=== PATIENT | female | born 1955 | race Caucasian/White ===

== ENCOUNTER → 2018-05-10 | Outpatient (CLI) | payer OTHER ==
[~2018-05-10] MED LIST: ADDERALL 20 MG20 M1 PO; CLONAZEPAM; DARVOCET-N 1001 EACH PO; HYDROCODONE-AP1 EAC6 PO; LEVOTHYROXINE0.05 MG PO; MENOSTAR1 EACH TD; PANTOPRAZOLE SO40 M1 PO; TRAZODONE HCL50 MG PO; ZOLOFT100 MG PO
== END ==
LOC: M.ULTRA 11:00
DX: Z12.31 Encounter for screening mammogram for malignant neoplasm of breast (principal); R22.9 Localized swelling, mass and lump, unspecified; M79.661 Pain in right lower leg

== ENCOUNTER → 2018-07-02 | Outpatient (CLI) | payer OTHER | LOC: M.ULTRA 16:00 | DX: M71.21 Synovial cyst of popliteal space [Baker], right knee (principal); M79.89 Other specified soft tissue disorders; R22.41 Localized swelling, mass and lump, right lower limb; R20.0 Anesthesia of skin ==

== ENCOUNTER → 2018-08-22 | Outpatient (CLI) | payer OTHER ==
[~2018-08-22] MED LIST changes: +CALCIUM + VIT1 EACH PO; +CRESTOR5 MG PO; +ESTRADIOL 1 MG T1 M1 PO; +FLONASE 0.05%50 MCG NASAL; -LEVOTHYROXINE0.05 MG PO; +LYRICA 75 MG CA75 MG PO; -MENOSTAR1 EACH TD; +NORCO 10-325 T1 EACH PO; +OCUVITE ADULT1 EAC1 PO; +OMEPRAZOLE40 MG PO; -PANTOPRAZOLE SO40 M1 PO; +SYNTHROID125 MC1 PO; +VITAMIN D2000 UNIT PO
--- NOTE | ~2018-08-22 | PAINCON ---
[address] [address] PAIN MANAGEMENT CONSULTATION Name: JORGENEWTONESTHER CURRIE [facility] [id number] Admission: 08/22/18 Attend Phys: Florentin Landeros MD Discharge: Date of : 53 Report #: [id number] THIS REPORT FOR: //name// CC: Florentin Cruz DATE OF SERVICE: 08/22/2018 CHIEF COMPLAINT: Lumbar back pain. HISTORY OF PRESENT ILLNESS: The patient is a 63-year-old female who has been referred to the Pain Clinic for evaluation. She has been experiencing pain, which she describes as exhausting and tense numbness from her right hip and into her low back area. Pain is made worse when she is walking, lifting and with activities of daily living. She feels the pain is improved when she is sitting or reclining. Describes it as continuous, constant, gnawing, tender, burning, cramping and aching. Rates it as a 3/10 today. Oftentimes, it can rise to a level of 10. Denies any bowel or bladder dysfunction as a result of it. Notes that the pain truly radiates down from the right hip down the lateral portion of her leg down into her foot. MRI of the lumbar spine indicated. Note was made of neural foraminal stenosis at the L3-L4 area. She has had some upper back pain and low back pain as well as some involvement of her right leg. She has had some problems with discomfort over the last 10 years. 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 She is not ridden them for 1-1/2 years. She frequently falls. States that it is secondary to being clumsy. Also, notes that her right leg gives out. She has had physical therapy and has visited chiropractor in the past as well. She has tried hot and cold packs. She also has used TENS. She has been using hydrocodone to help curve the pain. Feels that Lyrica somewhat beneficial, but causes some feeling of depression. She has used ibuprofen as well. She feels that her pain is 50-75% improved with the current regimen. Activities, such as walking, standing, climbing stairs, sitting, lifting and bending are problematic. She has noticed some improvement with the use of medications, heat, rest and massage in conjunction with TENS. ALLERGIES: MORPHINE. CURRENT MEDICATIONS: Osteo Bi-Flex, vitamin D3, B complex vitamins, hydrocodone, Flonase, sertraline, clonazepam, trazodone, levothyroxine, estradiol, Adderall XR, omeprazole, and Lyrica p.r.n. PAST MEDICAL HISTORY: Hypothyroidism, asthma, gastroesophageal reflux disease, elevated cholesterol, fibromyalgia, bipolar, attention deficit disorder, dyslexia, sleep apnea, restless legs syndrome, migraine, and connective tissue disease. PAST SURGICAL HISTORY: Tonsillectomy, appendectomy, [place] [address] PAIN MANAGEMENT CONSULTATION Name: NEWTON PATEL ROSEY Room: [facility] Lange#: [id number] Admission: 08/22/18 Attend Phys: Florentin Landeros MD Discharge: Date of : 53 Report #: [id number] ovary childbirth x 2, hysterectomy, left trigger thumb release, esophageal adhesions, breast implantation/___ removal, cholecystectomy, right foot bunion surgery, hematoma evacuation of right knee after a horse bite, kidney stone removal, colonoscopy, right knee arthroscopy, left foot surgery, right lateral epicondyle debridement, 01/03/2008. Cholecystectomy 2003, hysterectomy in 1981 with right ovary removed 1971, left ovary removed, appendectomy was 1971, right knee surgery x 2. SOCIAL HISTORY: She is retired. She has not worked since 2012. REVIEW OF SYSTEMS: Generally good health, fatigue, weakness, headaches, wears glasses, hearing loss, sore throat, voice changes, swollen glands, neck, shortness of breath, abdominal pain, joint pain, joint stiffness/swelling, weakness of muscles/joints, muscle pain/cramps, back pain, difficulty walking, memory loss/confusion, nervousness, depression, and easy bruising. LABORATORY DATA: MRI of the lumbar spine dated 07/19/2018: 1. L2-L3 posterior disk height loss. Mild disk bulge. Facet hypertrophy. Mild left neural foraminal stenosis. Right neural foraminal minimally narrowed. Mild spinal canal stenosis, dural sac diameter 11 mm relative to the normal diameter of 13 mm at the L2 pedicle level. 2. L3-L4 uncovering of the disk and moderate disk bulge. Posterior disk height loss. Bulky facet osteophytes. Moderate right greater than left neural foraminal stenosis and mild narrowing lateral recess greater than right. Moderate spinal canal stenosis, dural sac diameter is 10 mm relative to the normal diameter 14 mm at the L3 pedicle level. 3. L4-L5 posterior disk height loss and mild disk bulge, facet osteophytes. Mild/moderate neural foraminal stenosis. No spinal canal stenosis. Dural sac diameter 15 mm. 4. L5-S1 marked disk desiccation, moderate disk height loss, uncovering of the disk and moderate disk bulge. Lateral endplate osteophytes and facet spurs. Mild neural foraminal stenosis. Mild spinal canal stenosis, dural sac diameter 12 mm relative to the normal diameter of 14 mm at the L5 pedicle level. PAIN CLINIC ASSESSMENT AND PQRS: 1. The patient has some arthritic changes in her right knee. [id number]. The patient is not being treated for rheumatoid arthritis. 2. Height 4 feet 11 inches, weight 229 pounds, BMI is 48. 3. Vital signs: Blood pressure 144/88, heart rate 75, respiratory rate 16, room air saturation is 95%, and temperature is 98.6. 4. Pain intensity, 3/10. 5. Fall history: The patient states she has fallen a number of times because of weakness involving her right leg, "it goes out." 6. Blood thinner. The patient is not on a blood thinning medication. 7. Hypertension. The patient is not being treated for hypertension. 8. Opioid therapy greater than 6 weeks. The [place] [address] PAIN MANAGEMENT CONSULTATION Name: JORGENEWTON ROSEY Room: [facility]#: [id number] Admission: 08/22/18 Attend Phys: Florentin Landeros MD Discharge: Date of : 53 Report #: [id number] help control her pain. 9. Risk assessment tool, moderate risk for opioid use. 10. Functional assessment tool . 11. Tobacco: The patient denies use of tobacco. 12. Alcohol: The patient denies use of alcoholic beverages. PHYSICAL EXAMINATION: GENERAL: The patient is a well-developed white female, appears her stated age. She is alert and oriented x 3. Affect is appropriate. Speech is fluent. HEENT: Normocephalic, atraumatic. Extraocular eye muscles intact. Sclerae nonicteric. Mucous membranes are moist. NECK: Without adenopathy or JVD. Upper extremity muscle strength is judged to be 5/5 on the left and 5-/5 on the right. The patient has a brace on her right hand. HEART: Regular rate. ABDOMEN: Protuberant. Bowel sounds present. MUSCULOSKELETAL: The patient has pain and discomfort in the right leg. She states that there is some pain and discomfort in the area of her posterior right leg. She was bitten by a horse in this area. Also, complains of some pain, which is radiating down into her right leg. She has some discomfort in the right as well as the left posterior superior iliac spine area. She complains of pain that radiates from her low back area in the posterior superior iliac spine down the lateral portion of her right leg and down into her foot. IMPRESSION: 1. Lumbar radiculopathy. 2. Hypothyroidism. 3. Asthma. 4. Gastroesophageal reflux disease. 5. Elevated cholesterol. 6. Fibromyalgia. 7. Bipolar. 8. Attention deficit disorder. 9. Dyslexia. 10. Sleep apnea. 11. Restless legs syndrome. 12. Migraine. 13. Connective tissue disease. RECOMMENDATIONS: We discussed treatment options with the patient. Risks and benefits of an epidural steroid injection were discussed. Possible complications of the procedure, which could include but are not limited to infection, worsening pain, no improvement in pain, spinal headache as well as nerve trauma were discussed. The patient will return to the Pain Clinic, at which time she will undergo an epidural steroid injection to help control pain and discomfort, which she is experiencing, which [place] [address] PAIN MANAGEMENT CONSULTATION Name: NEWTON PATEL Room: [facility]#: [id number] Admission: 08/22/18 Attend Phys: Florentin Landeros MD Discharge: Date of : 53 Report #: [id number] lateral area down into the L5 dermatomal distribution. We would like to thank you for letting us participate in her care. We hope she continues to improve. By: [id number]. Eduardo Landeros MD /nt
== END ==
LOC: M.PC 05:04
DX: M54.16 Radiculopathy, lumbar region (principal); E03.9 Hypothyroidism, unspecified; J45.909 Unspecified asthma, uncomplicated; K21.9 Gastro-esophageal reflux disease without esophagitis; E78.00 Pure hypercholesterolemia, unspecified; G47.30 Sleep apnea, unspecified; G43.909 Migraine, unspecified, not intractable, without status migrainosus; M35.1 Other overlap syndromes; Z90.49 Acquired absence of other specified parts of digestive tract; Z88.5 Allergy status to narcotic agent; Z79.899 Other long term (current) drug therapy

== ENCOUNTER → 2018-09-05 | Outpatient (CLI) | payer OTHER ==
--- NOTE | ~2018-09-05 | PAINCON ---
[address] [address] PAIN MANAGEMENT CONSULTATION Name: NEWTON PATEL [id number] Admission: 09/05/18 Attend Phys: Florentin Landeros MD Discharge: Date of : 53 Report #: [id number] THIS REPORT FOR: //name// CC: Florentin Cruz DATE OF SERVICE: 09/05/2018 CHIEF COMPLAINT: Pain down the right leg with numbness, tingling, and weakness. HISTORY: The patient is a 63-year-old female, who has been seen in the pain clinic because of pain and discomfort, which she has been experiencing. It radiates down into her right leg with numbness, tingling, and weakness. She notes that activities of daily living have become more problematic. Walking, standing, climbing stairs, sitting, bending, and lifting are more problematic. She has been using the TENS unit to help with the pain and finds that the medications, use of heat as well as cold have been beneficial as well. She has returned today desiring treatment with an epidural steroid injection. CURRENT MEDICATIONS: Osteo Bi-Flex, vitamin D3, B complex vitamins, hydrocodone, Flonase, sertraline, clonazepam, trazodone, levothyroxine, estradiol, Adderall XR, omeprazole, and Lyrica. ALLERGIES: MORPHINE. PAIN CLINIC ASSESSMENT AND PQRS: 1. The patient has some arthritic changes in her right knee. She has tmwy-nh-ifcm irritation. She is not being treated for rheumatoid arthritis. 2. Pain intensity is 4/10. 3. Fall history. The patient has fallen a number of times because of weakness involving her right leg. She states that it gives out. 4. Blood thinner. The patient is not on a blood thinning medication. 5. Hypertension. The patient is not being treated for hypertension. 6. Opioids greater than 6 weeks. The patient has used oxycodone to help control her pain. 7. Risk assessment tool, moderate for opioid risk. 8. Functional assessment tool, . 9. Tobacco. The patient denies use of tobacco. 10. Alcohol. The patient denies use of alcoholic beverages. PHYSICAL EXAMINATION: GENERAL: The patient is a well-developed, well-nourished, somewhat obese white female. She appears her stated age. She is alert and oriented x 3. Her affect is appropriate. Speech is fluent. Height is 4 feet 11 inches, weight is 236 pounds, and BMI is 47.5. VITAL SIGNS: Blood pressure is 151/65, respiratory rate is 16, [place] [address] PAIN MANAGEMENT CONSULTATION Name: JORGENEWTON ROSEY Room: [facility]..#: [id number] Admission: 09/05/18 Attend Phys: Florentin Landeros MD Discharge: Date of : 53 Report #: [id number] saturation is 94%, heart rate is 66, and temperature is 98.1. HEENT: Normocephalic, atraumatic. Extraocular eye muscles intact. NECK: Without adenopathy or JVD. Upper extremity muscle strength is judged to be 5/5 for the major muscle groups in the upper extremity on the right. HEART: Regular rate. ABDOMEN: Protuberant. Bowel sounds present. MUSCULOSKELETAL: The patient has complained of pain and discomfort with pain that is radiating down into her right leg with numbness and weakness. She has pain and discomfort in the L4-L5 dermatomal distribution. Straight leg raise is positive. IMPRESSION: 1. Lumbar radiculopathy at L4-L5 and pain in the right lumbar L4-L5 distribution. 2. Hypothyroidism. 3. Asthma. 4. Gastroesophageal reflux. 5. Elevated cholesterol. 6. Fibromyalgia. 7. Bipolar history. 8. Attention deficit disorder. 9. Dyslexia. 10. Sleep apnea. 11. Restless legs syndrome. 12. Migraines. 13. Connective tissue disease. RECOMMENDATIONS: We have discussed treatment options with the patient. Risks and benefits of an epidural steroid injection were again reviewed. They include but are not limited to infection, worsening pain, no improvement in pain, trauma with paralysis, spinal headache. The patient elects to proceed. PROCEDURE NOTE: The patient was taken to the procedure area. She was assisted in getting on the examination table. Her back was sterilely prepped with a Betadine solution. A 0.25% bupivacaine was infiltrated in the right paramedian approach. A 25-gauge needle using 0.25% bupivacaine was infiltrated. A 17-gauge Tuohy with loss of resistance technique was used to gain access to the epidural space. There was no CSF, heme, or paresthesia. A total of 80 mg of Depo-Medrol, 40 mg of triamcinolone, and 2 mL of 0.25% bupivacaine was injected. The patient tolerated the procedure well. There were no complications. A total of 12 seconds fluoroscopy time was used. The patient will follow up in the future as needed. We would like to thank you for letting us to participate in her care. The patient has also been given a script to follow up with physical therapy 3 times a week [place] [address] PAIN MANAGEMENT CONSULTATION Name: NEWTON PATEL Room: [facility].#: [id number] Admission: 09/05/18 Attend Phys: Florentin Landeros MD Discharge: Date of : 53 Report #: [id number] We would like to thank you again for letting us to participate in her care. We hope she continues to improve. By: [id number]. Eduardo Landeros MD /PMT
== END | disposition home or self-care (01) ==
LOC: M.PC 04:55
DX: M54.16 Radiculopathy, lumbar region (principal); E03.9 Hypothyroidism, unspecified; J45.909 Unspecified asthma, uncomplicated; K21.9 Gastro-esophageal reflux disease without esophagitis; E78.00 Pure hypercholesterolemia, unspecified; M79.7 Fibromyalgia; F31.9 Bipolar disorder, unspecified; F98.8 Other specified behavioral and emotional disorders with onset usually occurring in childhood and adolescence; R48.0 Dyslexia and alexia; G47.33 Obstructive sleep apnea (adult) (pediatric); G25.81 Restless legs syndrome; G43.909 Migraine, unspecified, not intractable, without status migrainosus; Z88.8 Allergy status to other drugs, medicaments and biological substances; Z79.891 Long term (current) use of opiate analgesic; Z98.890 Other specified postprocedural states; Z79.899 Other long term (current) drug therapy

== ENCOUNTER → 2018-10-10 | Outpatient (CLI) | payer OTHER ==
--- NOTE | ~2018-10-10 | PAINCON ---
[address] [address] PAIN MANAGEMENT CONSULTATION Name: NEWTON PATEL Room: [facility] Anisa#: [id number] Admission: 10/10/18 Attend Phys: Florentin Landeros MD Discharge: Date of : 53 Report #: [id number] THIS REPORT FOR: //name// CC: Florentin Cruz DATE OF SERVICE: 10/10/2018 FOLLOWUP COMPLAINT: Here for another injection, things were about 80% better. HISTORY: The patient is a 63-year-old female who has been seen in the pain clinic because of pain and discomfort she has been experiencing. She has experienced pain that radiated down into her legs, particularly on the right side. She experienced numbness and tingling. She underwent an epidural steroid injection at the last visit on 09/05/2018. She felt that it was very helpful. She feels things are about 80% better. She has noted a gradual return of some of the discomfort. She is not at the baseline where she was, but feels that another injection would be beneficial. Rates her pain as a 3-4/10. ALLERGIES: MORPHINE. MEDICATIONS: Bioflex, vitamin D3, B complex vitamins, hydrocodone, Flonase, sertraline, clonazepam, trazodone, levothyroxine, estradiol, Adderall XR, omeprazole, Lyrica. PAIN CLINIC ASSESSMENT/PQRS: 1. The patient has some arthritic changes in her right knee. She does have ncel-bh-ctzf irritation. She is not being treated for rheumatoid arthritis. 2. Height 4 feet 11 inches, weight 232 pounds, BMI is 47. 3. VITAL SIGNS: Blood pressure 147/66, heart rate 66, respiratory rate 16, room air saturation 96%, temperature 98.1. 4. Pain intensity 3-4/10. 5. Fall history: The patient has not fallen in the last 3 months. 6. Blood thinner: The patient is not on a blood thinning medication. 7. Hypertension: The patient is not being treated for hypertension. 8. Opioids greater than 6 weeks: The patient has used opioid medications of oxycodone. Feels this helps to control her pain. 9. Risk assessment tool: Moderate for opioid risk. 10. Functional assessment tool. . . 12. Tobacco: The patient denies use of tobacco. 13. Alcohol: The patient denies use of alcoholic beverages. PHYSICAL EXAMINATION: GENERAL: The patient is a well-developed, well-nourished white female. Appears somewhat obese. She is alert and oriented x 3. [place] [address] PAIN MANAGEMENT CONSULTATION Name: NEWTON PATEL [facility] [id number] Admission: 10/10/18 Attend Phys: Florentin Landeros MD Discharge: Date of : 53 Report #: [id number] Speech is fluent. HEENT: Normocephalic, atraumatic. Extraocular eye muscles intact. Sclerae nonicteric. Mucous membranes are moist. NECK: Without adenopathy or JVD. Major muscle groups in the upper extremity are 5/5. HEART: Rate regular. ABDOMEN: Protuberant. Bowel sounds present. MUSCULOSKELETAL: Without significant scoliosis, kyphosis or lordosis. The patient does complain of pain that radiates down into her right leg with tingling. She rates her pain as 3-4. Positive straight leg raise. IMPRESSION: 1. Lumbar radiculopathy, L4-L5. 2. Hypothyroidism. 3. Asthma. 4. Gastroesophageal reflux. 5. Elevated cholesterol. 6. Fibromyalgia. 7. Bipolar history. 8. Attention deficit disorder. 9. Dyslexia. 10. Sleep apnea. 11. Restless leg syndrome. 12. Migraines. 13. Connective tissue disease. RECOMMENDATIONS: We discussed treatment options with the patient. At this juncture, she feels that the last injection was beneficial. She has returned today with a hope of undergoing another epidural steroid injection to help quell her pain and discomfort. We discussed the possible complications. They include but are not limited to infection, worsening of pain, no improvement in pain, bleeding, infection, nerve damage and the patient elects to proceed. PROCEDURE NOTE: The patient was taken to the procedure area. She was then assisted in getting on the examination table. Her back was sterilely prepped with a Betadine solution. A 0.25% bupivacaine was infiltrated at the L5-L4 area. This area had been sterilely prepped with Betadine and infiltrated with 0.25% bupivacaine. Fluoroscopy using anterior, posterior as well as lateral viewing were implemented to note appropriate placement. The patient underwent injection of 80 mg Depo-Medrol, 40 mg triamcinolone and 2 mL of 0.25% bupivacaine. There were no complications. Total of about 17 seconds fluoroscopy time was used. The patient remained in the pain clinic for an appropriate amount of time. There were no complications. [place] [address] PAIN MANAGEMENT CONSULTATION Name: NEWTON PATEL [facility]: [facility] [id number] Admission: 10/10/18 Attend Phys: Florentin Landeros MD Discharge: Date of : 53 Report #: [id number] the future as needed. We would like to thank you for letting us participate in her care. We hope she continues to improve. By: [id number]. Eduardo Landeros MD /NOA
== END | disposition home or self-care (01) ==
LOC: M.PC 05:20
DX: M54.16 Radiculopathy, lumbar region (principal); E03.9 Hypothyroidism, unspecified; J45.909 Unspecified asthma, uncomplicated; K21.9 Gastro-esophageal reflux disease without esophagitis; E78.00 Pure hypercholesterolemia, unspecified; M79.7 Fibromyalgia; F90.9 Attention-deficit hyperactivity disorder, unspecified type; F31.9 Bipolar disorder, unspecified; G25.81 Restless legs syndrome; G43.909 Migraine, unspecified, not intractable, without status migrainosus; Z68.42 Body mass index [BMI] 45.0-49.9, adult; Z79.899 Other long term (current) drug therapy; Z88.8 Allergy status to other drugs, medicaments and biological substances

== ENCOUNTER → 2020-03-22 | Outpatient (CLI) | payer MEDICARE, OTHER | LOC: M.RAD 10:50 | DX: Z12.31 Encounter for screening mammogram for malignant neoplasm of breast (principal) ==

== ENCOUNTER → 2021-04-27 | Outpatient (CLI) | payer MEDICARE, OTHER | LOC: M.RAD 13:25 | DX: Z12.31 Encounter for screening mammogram for malignant neoplasm of breast (principal); M81.0 Age-related osteoporosis without current pathological fracture; Z78.0 Asymptomatic menopausal state ==